=== PATIENT | female | born 1960 | race African-American/Black ===

== ENCOUNTER 2016-12-11 17:00 | Emergency (ER) | payer SELFPAY ==
[2016-12-11] MEDS ORDERED: OMEPRAZOLE20 M3 PO (17:02)
[2016-12-11] MEDS ORDERED: LISINOPRIL-HCT1 EAC2 PO (17:02)
[2016-12-11] MEDS ORDERED: GLUCOPHAGE1000 M1 PO (17:02)
[2016-12-11] MEDS ORDERED: ZOCOR20 M1 PO (17:03)
[2016-12-11] MEDS ORDERED: ULTRAM50 M1 PO (18:45)
== END 2016-12-11 19:00 ==
LOC: EDMED 17:00
DX: M25.512 Pain in left shoulder (principal); E11.9 Type 2 diabetes mellitus without complications; I10 Essential (primary) hypertension; Z79.899 Other long term (current) drug therapy
CPT/HCPCS: J1885; J2270